=== PATIENT | female | born 1985 | race Caucasian/White ===

== ENCOUNTER 2016-06-19 14:21 | Inpatient (IN) | payer MEDICAID ==
[~2016-06-19] VITALS: Ht 157.5 cm; Wt 81.5 kg
[~2016-06-19 14:21] MED LIST: MOTRIN 600600 MG/TAB PO; PERCOCET 325 MG1 TA2 PO
[2016-07-11] VITALS (39 sets, daily range): BP systolic 99–132; BP diastolic 57–85; PULSE 83–114; TEMP 98.3–98.8
[2016-07-11] MEDS ORDERED: NEXIUM24HROTC PO (08:04)
[2016-07-11 08:45] LABS: BASO % 0.3 % (0.0-2.0); EOS # 0.1 (0.0-0.7); GRAN # 4.5 (1.4-6.5); GRAN % 73.8 % (42.2-75.2); LYMPH # 1.2 (1.2-3.4); MEAN CELL VOLUME 84 fl (80.0-100.0); MEAN CORPUSCULAR HGB CONC 34 g/dl (33.0-37.0); MEAN PLATELET VOLUME 11.3 fl (7.4-10.4); MONO # 0.3 (0.1-0.6); MONO % 5.4 % (1.7-9.3); PLATELET COUNT 117 K/mm3 (130-400); RED BLOOD COUNT 3.51 M/mm3 (4.10-5.30); REDCELL DISTRIBUTION WIDTH-CV 13.5 % (11.5-14.5); WHITE BLOOD COUNT 6.1 K/mm3 (4.8-10.8)
[2016-07-11 08:56] LABS: HEMATOCRIT 29.6 % (37.0-47.0); MEAN CORPUSCULAR HEMOGLOBIN 28 pg (27.0-31.0)
[2016-07-12 01:00] VITALS: BP 102/52; PULSE 74; TEMP 98.9
[2016-07-12 08:00] VITALS: BP 107/63; PULSE 83; TEMP 97.8
[2016-07-12 08:03] LABS: BASO % 0.2 % (0.0-2.0); EOS % 0.7 % (0-4.0); GRAN # 4.6 (1.4-6.5); GRAN % 78.1 % (42.2-75.2); LYMPH # 0.9 (1.2-3.4); LYMPH % 14.6 % (20.0-51.0); MEAN CELL VOLUME 86 fl (80.0-100.0); MEAN CORPUSCULAR HGB CONC 33 g/dl (33.0-37.0); MEAN PLATELET VOLUME 10.8 fl (7.4-10.4); MONO # 0.4 (0.1-0.6); MONO % 5.9 % (1.7-9.3); PLATELET COUNT 93 K/mm3 (130-400); RED BLOOD COUNT 2.53 M/mm3 (4.10-5.30); REDCELL DISTRIBUTION WIDTH-CV 13.5 % (11.5-14.5); WHITE BLOOD COUNT 5.9 K/mm3 (4.8-10.8)
[2016-07-12 08:22] LABS: HEMATOCRIT 21.8 % (37.0-47.0); HEMOGLOBIN 7.2 g/dl (12.5-16.0); MEAN CORPUSCULAR HEMOGLOBIN 28 pg (27.0-31.0)
[2016-07-12 15:03] VITALS: BP 116/70; PULSE 96; TEMP 97.8
[2016-07-12 16:07] VITALS: PULSE 84
[2016-07-12 21:00] VITALS: BP 117/64; PULSE 89; TEMP 98.6
[2016-07-13 07:32] VITALS: BP 107/71; PULSE 87; TEMP 97.9
[2016-07-13 08:19] LABS: BASO % 0.4 % (0.0-2.0); EOS # 0.1 (0.0-0.7); EOS % 1.7 % (0-4.0); GRAN % 66.4 % (42.2-75.2); LYMPH # 1.1 (1.2-3.4); LYMPH % 23.4 % (20.0-51.0); MEAN CELL VOLUME 86 fl (80.0-100.0); MEAN CORPUSCULAR HGB CONC 33 g/dl (33.0-37.0); MONO # 0.3 (0.1-0.6); MONO % 7.4 % (1.7-9.3); PLATELET COUNT 97 K/mm3 (130-400); RED BLOOD COUNT 2.65 M/mm3 (4.10-5.30); REDCELL DISTRIBUTION WIDTH-CV 13.5 % (11.5-14.5); WHITE BLOOD COUNT 4.6 K/mm3 (4.8-10.8)
[2016-07-13] MEDS ORDERED: FERROUS SU325 MG/TAB PO (08:22)
[2016-07-13] MEDS ORDERED: IBU600 MG PO (08:23)
[2016-07-13] MEDS ORDERED: PERCOCET 325 MG1 TA2 PO (08:23)
[2016-07-13 08:34] LABS: HEMATOCRIT 22.9 % (37.0-47.0); HEMOGLOBIN 7.5 g/dl (12.5-16.0); MEAN CORPUSCULAR HEMOGLOBIN 28 pg (27.0-31.0)
== END 2016-07-13 13:00 | disposition home or self-care (01) | DRG 775 ==
LOC: LDR 07-11 07:21 → OB 07-11 17:30 → EDSTATUS 07-17 07:34 → LDRO 07-17 14:21
PROVIDERS: Obstetrics & Gynecology; Student in an Organized Health Care Education/Training Program
PROC: 10E0XZZ Delivery of Products of Conception, External Approach (ICD-10-PCS; principal; 2016-07-11)
PROC: 0UQM0ZZ Repair Vulva, Open Approach (ICD-10-PCS; 2016-07-11)
PROC: 3E033VJ Introduction of Other Hormone into Peripheral Vein, Percutaneous Approach (ICD-10-PCS; 2016-07-11)
DX: O34.211 Maternal care for low transverse scar from previous cesarean delivery (principal); N85.8 Other specified noninflammatory disorders of uterus; O99.824 Streptococcus B carrier state complicating childbirth; O70.0 First degree perineal laceration during delivery; Z3A.39 39 weeks gestation of pregnancy; Z37.0 Single live birth
CPT/HCPCS: J2400; J2405; J2540; J2590; J7120

== ENCOUNTER 2017-04-09 19:49 | Emergency (ER) | payer SELFPAY ==
[~2017-04-09] VITALS: Ht 157.5 cm; Wt 64.1 kg
[~2017-04-09 19:49] MED LIST changes: +FERROUS SU325 MG/TAB PO; +IBU600 MG PO; +NEXIUM24HROTC PO
[2017-04-09 20:07] VITALS: BP 124/79; TEMP 98.8
[2017-04-09 20:53] LABS: INFLUENZA A POSITIVE; INFLUENZA B NEGATIVE
[2017-04-09 21:27] LABS: EOS % 0.3 % (0-4.0); GRAN # 1.9 (1.4-6.5); GRAN % 51.6 % (42.2-75.2); HEMATOCRIT 39.8 % (37.0-47.0); HEMOGLOBIN 13.2 g/dl (12.5-16.0); LYMPH # 1.3 (1.2-3.4); LYMPH % 35.7 % (20.0-51.0); MEAN CELL VOLUME 81 fl (80.0-100.0); MEAN CORPUSCULAR HEMOGLOBIN 27 pg (27.0-31.0); MEAN CORPUSCULAR HGB CONC 33 g/dl (33.0-37.0); MEAN PLATELET VOLUME 10.4 fl (7.4-10.4); MONO # 0.4 (0.1-0.6); MONO % 12.1 % (1.7-9.3); PLATELET COUNT 142 K/mm3 (130-400); RED BLOOD COUNT 4.94 M/mm3 (4.10-5.30); REDCELL DISTRIBUTION WIDTH-CV 12.4 % (11.5-14.5)
[2017-04-09 21:45] LABS: ALBUMIN 4.7 gm/dL (3.5-5.0); BILIRUBIN,TOTAL 0.4 mg/dL (0.0-1.0); C-REACTIVE PROTEIN 1.7 mg/dL (0.0-0.9); CALCIUM 9.7 mg/dL (8.4-10.2); CREATININE, serum 0.75 mg/dL (0.52-1.25); POTASSIUM 3.3 mmol/L (3.4-5.0); TOTAL PROTEIN 8.4 gm/dL (6.4-8.2)
[2017-04-09 23:29] VITALS: PULSE 90
== END 2017-04-09 23:33 | disposition home or self-care (01) ==
LOC: COL.ER 19:49
PROVIDERS: Nurse Practitioner
DX: J10.1 Influenza due to other identified influenza virus with other respiratory manifestations (principal); Z90.49 Acquired absence of other specified parts of digestive tract
CPT/HCPCS: J1885; J2405; J3010; J7030

== ENCOUNTER 2017-04-26 19:00 | Emergency (ER) | payer BC ==
[~2017-04-26] VITALS: Ht 157.5 cm; Wt 63.6 kg
[2017-04-26 19:09] VITALS: BP 136/95; TEMP 98.9
[2017-04-26 20:40] LABS: MEAN CELL VOLUME 80 fl (80.0-100.0); MEAN CORPUSCULAR HEMOGLOBIN 27 pg (27.0-31.0); MEAN CORPUSCULAR HGB CONC 33 g/dl (33.0-37.0); MEAN PLATELET VOLUME 10.1 fl (7.4-10.4); PLATELET COUNT 106 K/mm3 (130-400); RED BLOOD COUNT 4.51 M/mm3 (4.10-5.30); REDCELL DISTRIBUTION WIDTH-CV 13.3 % (11.5-14.5)
[2017-04-26 20:41] LABS: COLLECTION METHOD CLEAN CATCH
[2017-04-26 20:42] LABS: HEMATOCRIT 36.2 % (37.0-47.0)
[2017-04-26 20:47] LABS: MUCOUS Present /lpf; PH 7 (5-8); SQUAMOUS EPITHELIAL 0-2 /hpf; URINE APPEARANCE Clear; URINE BACTERIA None Seen /hpf; URINE BILIRUBIN Negative (NEGATIVE); URINE BLOOD Negative (NEGATIVE); URINE COLOR Yellow; URINE GLUCOSE Negative (NEGATIVE); URINE KETONE Negative (NEGATIVE); URINE LEUKOCYTE ESTERASE Negative (NEGATIVE); URINE NITRATE Negative (NEGATIVE); URINE PROTEIN(semi-quant) Negative (NEGATIVE); URINE RBC 0-2 /hpf; URINE UROBILINOGEN Negative (NEGATIVE)
[2017-04-26 20:51] LABS: ALBUMIN 4.7 gm/dL (3.5-5.0); BILIRUBIN,TOTAL 0.5 mg/dL (0.0-1.0); CALCIUM 9.3 mg/dL (8.4-10.2); CREATININE, serum 0.64 mg/dL (0.52-1.25); POTASSIUM 3.6 mmol/L (3.4-5.0); TOTAL PROTEIN 8.1 gm/dL (6.4-8.2)
[2017-04-26 21:04] LABS: BAND 3 % (0-10); LYMPHOCYTE 17 % (20.0-51.0); NEUTROPHILS 73 % (42.0-75.2)
[2017-04-26 21:05] LABS: ANISOCYTOSIS 2+; MICROCYTOSIS 1+; POLYCHROMASIA 1+
[2017-04-26 22:13] VITALS: PULSE 98
== END 2017-04-26 22:13 | disposition home or self-care (01) ==
LOC: COL.ER 19:00
PROVIDERS: Nurse Practitioner Primary Care
DX: R19.7 Diarrhea, unspecified (principal); Z90.49 Acquired absence of other specified parts of digestive tract; Z90.89 Acquired absence of other organs; Z98.890 Other specified postprocedural states

== ENCOUNTER → 2017-05-22 | Outpatient (CLI) | payer BC | LOC: MHCPAIN 14:36 | DX: G89.29 Other chronic pain (principal); M47.817 Spondylosis without myelopathy or radiculopathy, lumbosacral region; M54.16 Radiculopathy, lumbar region | CPT/HCPCS: G0463 ==